=== PATIENT | female | born 1990 | race American Indian/Alaskan Native ===

== ENCOUNTER 2017-01-21 17:28 | Emergency (ER) | payer MEDICAID ==
[2017-01-21 17:28] VITALS: BMI 51.3
[2017-01-21 17:32] VITALS: O2SAT 96
[2017-01-21] MEDS ORDERED: Oxycodone/Acetaminophen 5/325 mg Tab PO STA (18:22)
--- NOTE | 2017-01-21 18:23 | C.PDOC ---
Time Seen by Provider: 01/21/17 18:10 Chief Complaint (Nursing): Abdominal Pain Past Medical History Vital Signs: Last Vital Signs Temp 98.2 F 01/21/17 17:31 Pulse 85 01/21/17 17:31 Resp 18 01/21/17 17:31 BP 107/62 01/21/17 17:31 Pulse Ox 96 01/21/17 17:31 - Medical History PMH: Anemia Denies: Chronic Kidney Disease Surgical History: Endoscopy - [facility] Procedures INJECT/INFUSE NEC (12/24/14) - Social History Hx Alcohol Use: No Hx Substance Use: No - Immunization History Hx Tetanus Toxoid Vaccination: No Hx Influenza Vaccination: No Hx Pneumococcal Vaccination: No ED Course And Treatment O2 Sat by Pulse Oximetry: 96 Disposition - Disposition Forms: [employer] (Filipino)
[2017-01-21 18:32] LABS: BASO % 0.5 % (0.0-2.0); EOS # 0.1 K/uL (0.0-0.7); EOS % 1.1 % (0.0-4.0); HEMATOCRIT 27.6 % (34.0-47.0); LYMPH # 3.7 K/uL (1.0-4.3); LYMPH % 36.9 % (20.0-40.0); MEAN CORPUSCULAR HEMOGLOBIN 27.4 pg (27.0-31.0); MEAN PLATELET VOLUME 8.1 fL (7.2-11.7); MONO # 0.8 K/uL (0.0-0.8); MONO % 7.9 % (0.0-10.0); WHITE BLOOD COUNT 9.9 K/uL (4.8-10.8)
--- NOTE | 2017-01-21 18:43 | C.PDOC ---
History Of Present Illness Jewell is a 26 y/o female presenting for vaginal bleeding. Patient has PMHx of fibroids, was recently evaluated at [facility] [place] for same complaint, and referred to a new tanbark peeler for surgical consult. Patient is taking control pills prescribed by previous tanbark peeler. Patient has not been able to follow up in the interim, and has had continued vaginal bleeding. Denies new complaints. PMD: Dr. Raphael Leon Time Seen by Provider: 01/21/17 18:10 Chief Complaint (Nursing): Abdominal Pain History Per: Patient History/Exam Limitations: no limitations Onset/Duration Of Symptoms: Days (x 4) Current Symptoms Are (Timing): Still Present Quality Of Discomfort: Cramping Abnormal Vaginal Bleeding: Yes Past Medical History Reviewed: Historical Data, Nursing Documentation, Vital Signs Vital Signs: Last Vital Signs Temp 98.2 F 01/21/17 17:31 Pulse 85 01/21/17 17:31 Resp 18 01/21/17 17:31 BP 107/62 01/21/17 17:31 Pulse Ox 96 01/21/17 18:48 - Medical History PMH: Anemia Denies: Chronic Kidney Disease Other PMH: Fibroids Surgical History: Endoscopy - [facility] Procedures INJECT/INFUSE NEC (12/24/14) Family History: States: No Known Family Hx - Social History Hx Alcohol Use: No Hx Substance Use: No - Immunization History Hx Tetanus Toxoid Vaccination: No Hx Influenza Vaccination: No Hx Pneumococcal Vaccination: No Review Of Systems Except As Marked, All Systems Reviewed And Found Negative. Constitutional: Negative for: Fever, Chills, Weakness, Malaise Cardiovascular: Negative for: Chest Pain, Palpitations, Orthopnea, Edema, Light Headedness Respiratory: Negative for: Cough, Shortness of Breath, SOB with Excertion, Wheezing Gastrointestinal: Negative for: Nausea, Vomiting, Abdominal Pain, Diarrhea, Constipation Genitourinary: Positive for: Vaginal Bleeding. Negative for: Dysuria, Frequency , Hematuria, Pelvic Pain Neurological: Negative for: Weakness, Numbness, Seizures, Altered Mental Status , Headache, Dizziness Physical Exam - Physical Exam Appears: Well, Non-toxic, No Acute Distress Skin: Normal Color, Warm, Dry Head: Atraumatic, Normacephalic Eye(s): bilateral: Normal Inspection, PERRL, EOMI Oral Mucosa: Moist Throat: Normal Neck: Normal, Supple Chest: Symmetrical Cardiovascular: Rhythm Regular, No Murmur Respiratory: Normal Breath Sounds, No Accessory Muscle Use, No Rales, No Rhonchi , No Wheezing Gastrointestinal/Abdominal: Normal Exam, Soft, No Tenderness Back: Normal Inspection, No CVA Tenderness Extremity: Normal ROM, No Pedal Edema, No Deformity Neurological/Psych: Oriented x3, Normal Speech, Normal Cranial Nerves Gait: Steady ED Course And Treatment - Laboratory Results Result Diagrams: 01/21/17 18:29 O2 Sat by Pulse Oximetry: 96 (RA) Pulse Ox Interpretation: Normal Medical Decision Making Medical Decision Making: Time: 18:10 Initial Plan: --Urine test --Labs ordered to r/o anemia --Given 1 tab Percocet for pain --Instructed to follow up with international trade teacher as scheduled 6:47PM Patient is not . Her Hgb is 9.1. She is resting in NAD with normal heart rate. She has international trade teacher follow-up and was instructed to call her tanbark peeler for further evaluation. Disposition - Disposition Disposition: HOME/ ROUTINE Disposition Time: 18:47 Condition: GOOD Additional Instructions: Follow-up with your tanbark peeler within 2 days for further evaluation. Return to ED if condition worsens. motrin or tylenol for pain. Instructions: Dysfunctional Uterine Bleeding (ED) Forms: [employer] (Mohawk) - Clinical Impression Clinical Impression: Vaginal bleeding - Scribe Statement The provider has reviewed the documentation as recorded by the Scribnadia Alexandra All medical record entries made by the Scribe were at my direction and personally dictated by me. I have reviewed the chart and agree that the record accurately reflects my personal performance of the history, physical exam, medical decision making, and the department course for this patient. I have also personally directed, reviewed, and agree with the discharge instructions and disposition.
[2017-01-21] MEDS ORDERED: Oxycodone/Acetaminophen 5/325 mg Tab ONE (18:44)
[2017-01-21 19:13] VITALS: BP 131/79; PULSE 79; RESP 15; TEMP 98.6
== END 2017-01-21 19:18 | disposition home or self-care (01) ==
LOC: C.ER 17:28
DX: N93.9 Abnormal uterine and vaginal bleeding, unspecified (principal)

== ENCOUNTER 2017-09-25 06:59 | Day surgery (SDC) | payer OTHER ==
[2017-09-25 07:42] VITALS: TEMP 97.5
--- NOTE | 2017-09-25 08:13 | CP.SDSHP ---
Same Day Surgery H & P - History Proposed Procedure: EGD Pre-Op Diagnosis: SEE NOTES - Previous Medical/Surgical History Pulmonary: Other Misc: Other Pain: 4.Moderate Pain - Allergies Allergies: Allergies bay leaf Allergy (Uncoded 01/21/17 17:48) RASH creole seasoning Allergy (Uncoded 01/21/17 17:48) RASH - Physical Exam General Appearance: N Vital Signs: Vital Signs 09/25/17 07:33 Temperature 97.5 F L Pulse Rate 68 Respiratory 18 Rate Blood Pressure 127/68 O2 Sat by Pulse 100 Oximetry Mental Status: Alert & Oriented x3 Neuro: WNL Heart: WNL Lungs: Other GI: Other - {Optional Preform as Required} Breast: WNL Abdomen: Other Rectal: Other Integument: WNL : WNL Ortho: WNL ENT: WNL - Impression Pt. Evaluated Today:Candidate for Anesthesia & Procedure: Yes - Date & Time Time: 08:13 Short Stay Discharge - Short Stay Discharge Admitting Diagnosis/Reason for Visit: DYSPEPSIA Disposition: HOME/ ROUTINE
[2017-09-25] MEDS ORDERED: Propofol 10 mg/ml Inj (20 ML) ONE (08:45)
[2017-09-25 09:19] VITALS: PULSE 67
[2017-09-25 10:07] VITALS: O2SAT 97
[2017-09-25 10:08] VITALS: BP 114/64; RESP 19
== END 2017-09-25 10:40 | disposition home or self-care (01) ==
LOC: C.ENDO 06:59
PROVIDERS: ATTEND Specialist
DX: K21.0 Gastro-esophageal reflux disease with esophagitis (principal); K30 Functional dyspepsia; K44.9 Diaphragmatic hernia without obstruction or gangrene; K29.70 Gastritis, unspecified, without bleeding
CPT/HCPCS: 43239; 84703; 88305; J2001; J2704; J3010; J7040